=== PATIENT | female | born 1990 | race Two or more races ===

== ENCOUNTER 2020-07-08 23:21 | Emergency (ER) | payer MEDICAID ==
[~2020-07-08] VITALS: Ht 160 cm; Wt 61.0 kg
[2020-07-08] MEDS ORDERED: KETOROLAC 60MG/2ML VIAL IM ONE (23:45)
[2020-07-09 00:24] LABS: CLARITY URINE CLEAR (CLEAR); COLOR URINE YELLOW (YELLOW); KETONES URINE 1+ (NEGATIVE); LEUKOCYTE ESTERASE URINE 1+ (NEGATIVE); NITRITE URINE NEGATIVE (NEGATIVE); OCCULT BLOOD URINE NEGATIVE (NEGATIVE); PROTEIN URINE NEGATIVE (NEGATIVE); UROBILINOGEN URINE 0.2 E.U./dL (0.2-1.0)
[2020-07-09] MEDS ORDERED: ACETAMINOPHEN 500MG TABLET PO ONE (00:30)
[2020-07-09 01:05] LABS: BASOPHILS % 0.5 % (0.0-2.0); HEMATOCRIT. 40.9 % (36.0-48.0); HEMOGLOBIN. 13.5 g/dL (12.0-16.0); LYMPHOCYTES % 29.2 % (20.0-50.0); MEAN CORPUSCULAR VOLUME 81.7 fL (81.0-99.0); MEAN PLATELET VOLUME 7.1 fl (7.4-10.4); MONOCYTES % 6.9 % (2.0-8.0); NEUTROPHILS % 62.4 % (40.0-76.0); PLATELET 246 x1000/uL (130-400); RED BLOOD CELL COUNT 5.01 mill/uL (4.2-5.4); RED CELL DISTRIBUTION WIDTH 13.6 % (11.6-14.6)
[2020-07-09] MEDS ORDERED: CEPHALEXIN 250MG CAPSULE PO NR (01:15)
[2020-07-09 01:17] LABS: CHLORIDE 104 mEq/L (98-107)
[2020-07-09 01:27] LABS: B-HCG QUANTITATIVE 309 mIU/mL (<3)
[2020-07-09] MEDS ORDERED: PREN-135 MT (01:45)
[2020-07-09] MEDS ORDERED: CEPH250C2 MT (01:45)
[2020-07-09 01:53] VITALS: BP 115/71
== END 2020-07-09 01:56 | disposition home or self-care (01) ==
LOC: ER 23:21
DX: O26.891 Other specified pregnancy related conditions, first trimester (principal); R10.2 Pelvic and perineal pain; O23.41 Unspecified infection of urinary tract in pregnancy, first trimester; F32.9 Major depressive disorder, single episode, unspecified; F41.9 Anxiety disorder, unspecified; Z3A.01 Less than 8 weeks gestation of pregnancy
CPT/HCPCS: 36415; 76801; 76817; 80053; 81003; 81025; 84702; 85025; 86850; 86900; 86901; 93005; 96372; 99285; J1885